=== PATIENT | female | born 1930 | race Caucasian/White ===

== ENCOUNTER 2016-10-21 07:41 | Inpatient (IN) | payer MEDICARE, BC ==
[~2016-10-21] VITALS: Ht 172.7 cm; Wt 71.6 kg
[~2016-10-21 07:41] MED LIST: AMIO200T PO; AMLO5TAB4 PO; CALC600T4 PO; CHOL200024 PO; CYAN500T18 PO; DIGO125T PO; DOXY100T PO; FOLI-17 PO; HYDR-3144 PO; IPRA0.2S35 INH; IRON18TA PO; METF500T27 PO; METO25TA35 PO; PRAV10TA2 PO; PRAV80TA2 PO; PREG100C PO; PROP50TA3 PO; TRAM50TA2 PO; VIT1CAPS16 PO; VITA1TAB3 PO; WARF3TAB7 PO
[2016-10-21] MEDS ORDERED: ONDANSETRON 2MG/ML, 2ML IVPush ONE (08:30)
[2016-10-21] MEDS ORDERED: SODIUM CHLORIDE FLUSH 10ML SYR IVF ONE (08:30)
[2016-10-21] MEDS ORDERED: ONDANSETRON 2MG/ML, 2ML ONE (08:52)
[2016-10-21 09:11] LABS: ASPARTATE AMINO TRANSFERASE 22 U/L (15-37); BLOOD UREA NITROGEN 24 mg/dL (7-18)
[2016-10-21 09:45] LABS: DIFF TOTAL CELLS COUNTED 100 CELL DIFF
[2016-10-21 09:46] LABS: ANISOCYTOSIS 1+; POLYCHROMASIA 1+; VERIFY COUNTS? YES
[2016-10-21] MEDS ORDERED: LACT1CAP35 PO (09:56)
[2016-10-21] MEDS ORDERED: GLUC1TAB55 PO (09:56)
[2016-10-21] MEDS ORDERED: FOLI-17 PO (09:56)
[2016-10-21] MEDS ORDERED: DOCU100C8 PO (09:56)
[2016-10-21] MEDS ORDERED: MAGN300C PO (09:56)
[2016-10-21] MEDS ORDERED: AMIO100T4 PO (09:56)
[2016-10-21 10:15] LABS: IS PT STATUS REG ER OR PRE ER? YES
[2016-10-21] MEDS ORDERED: ONDANSETRON ODT 4 MG PO PRN (14:00)
[2016-10-21] MEDS ORDERED: ACETAMINOPHEN 325 MG TABLET PO PRN (14:00)
[2016-10-21] MEDS ORDERED: HYDROcodone/APAP 5/325 TABLET PO PRN (14:00)
[2016-10-21 14:18] VITALS: BP 153/63
[2016-10-21] MEDS ORDERED: PHYTONADIONE 10 MG/ML, 1ML IM ONE (14:30)
[2016-10-21 15:20] LABS: TOTAL IRON BINDING CAPACITY 206 mcg/dL (250-450)
[2016-10-21] MEDS: SODIUM CHLORIDE 0.9% 1,000 ML IV SCH ×2 (15:58→23:39)
[2016-10-21] MEDS: IPRATROPIUM 0.5 MG/2.5 ML INHA HHN SCH ×2 (16:00→21:00)
[2016-10-21 18:31] VITALS: BP 137/63
[2016-10-21] MEDS: CYANOCOBALOMIN 100MCG TABLET PO SCH (20:00)
[2016-10-21 20:59] LABS: DIFF TOTAL CELLS COUNTED 100 CELL DIFF
[2016-10-21 21:05] LABS: ANISOCYTOSIS 1+; POLYCHROMASIA 1+; VERIFY COUNTS? YES
[2016-10-21] MEDS: CALCIUM CARBONATE 500 MG TAB.CHEW PO SCH (21:16)
[2016-10-21] MEDS: metFORMIN XR 500 MG TAB.ER.24H PO SCH (21:17)
[2016-10-21] MEDS: SIMVASTATIN 5 MG TABLET PO SCH (21:17)
[2016-10-21] MEDS: PROPYLTHIOURACIL 50 MG TABLET PO SCH (21:17)
[2016-10-22 01:03] VITALS: BP 149/66
[2016-10-22 06:37] LABS: BLOOD UREA NITROGEN 17 mg/dL (7-18)
[2016-10-22 06:52] LABS: DIFF TOTAL CELLS COUNTED 100 CELL DIFF
[2016-10-22 06:54] LABS: VERIFY COUNTS? YES
[2016-10-22 06:55] LABS: ANISOCYTOSIS 1+; POLYCHROMASIA 1+
[2016-10-22] MEDS: PREGABALIN 100 MG CAPSULE PO SCH (08:01)
[2016-10-22 08:09] VITALS: BP 145/50
[2016-10-22] MEDS: FERROUS SULFATE 325 MG TABLET PO SCH (08:11)
[2016-10-22] MEDS: PROPYLTHIOURACIL 50 MG TABLET PO SCH ×2 (08:11→20:50)
[2016-10-22] MEDS: FOLIC ACID 1 MG TABLET PO SCH (08:11)
[2016-10-22] MEDS: CHOLECALCIFEROL 1,000 UNIT TABLET PO SCH (08:11)
[2016-10-22] MEDS: metFORMIN XR 500 MG TAB.ER.24H PO SCH ×2 (08:11→20:50)
[2016-10-22] MEDS: HYDROcodone/APAP 10/325 MG TABLET PO PRN ×2 (08:11→15:52)
[2016-10-22] MEDS: CYANOCOBALOMIN 100MCG TABLET PO SCH (08:11)
[2016-10-22] MEDS: PANTOPRAZOLE 40 MG IV IVP SCH (08:11)
[2016-10-22] MEDS: LACTOBACILLUS 1GM/ PACKET PO SCH (08:12)
[2016-10-22] MEDS: CALCIUM CARBONATE 500 MG TAB.CHEW PO SCH ×2 (08:12→20:50)
[2016-10-22] MEDS: DOXYCYCLINE 100MG TABLET PO SCH (08:12)
[2016-10-22] MEDS: AMIODARONE 200 MG TABLET PO SCH (08:17)
[2016-10-22] MEDS: SODIUM CHLORIDE 0.9% 1,000 ML IV SCH ×2 (08:17→20:51)
[2016-10-22] MEDS: IPRATROPIUM 0.5 MG/2.5 ML INHA HHN SCH ×3 (09:00→21:00)
[2016-10-22 15:10] VITALS: BP 146/58
[2016-10-22 20:14] VITALS: BP 126/64
[2016-10-22] MEDS: SIMVASTATIN 5 MG TABLET PO SCH (20:51)
[2016-10-23 00:45] VITALS: BP 150/69
[2016-10-23] MEDS: HYDROcodone/APAP 10/325 MG TABLET PO PRN ×4 (00:58→22:10)
[2016-10-23] MEDS: SODIUM CHLORIDE 0.9% 1,000 ML IV SCH ×2 (05:39→15:39)
[2016-10-23 06:20] LABS: DIFF TOTAL CELLS COUNTED 100 CELL DIFF
[2016-10-23 06:22] LABS: VERIFY COUNTS? YES
[2016-10-23 06:23] LABS: ANISOCYTOSIS 1+
[2016-10-23 06:24] LABS: POLYCHROMASIA 1+
[2016-10-23 06:49] VITALS: BP 137/68
[2016-10-23] MEDS: DOXYCYCLINE 100MG TABLET PO SCH (07:55)
[2016-10-23] MEDS: PREGABALIN 100 MG CAPSULE PO SCH (07:55)
[2016-10-23] MEDS: PANTOPRAZOLE 40 MG IV IVP SCH (07:55)
[2016-10-23] MEDS: LACTOBACILLUS 1GM/ PACKET PO SCH (07:56)
[2016-10-23] MEDS: metFORMIN XR 500 MG TAB.ER.24H PO SCH ×2 (07:56→22:10)
[2016-10-23] MEDS: FERROUS SULFATE 325 MG TABLET PO SCH (07:56)
[2016-10-23] MEDS: CHOLECALCIFEROL 1,000 UNIT TABLET PO SCH (07:56)
[2016-10-23] MEDS: CALCIUM CARBONATE 500 MG TAB.CHEW PO SCH ×2 (07:56→22:10)
[2016-10-23] MEDS: PROPYLTHIOURACIL 50 MG TABLET PO SCH ×2 (07:56→22:10)
[2016-10-23] MEDS: AMIODARONE 200 MG TABLET PO SCH (07:56)
[2016-10-23] MEDS: FOLIC ACID 1 MG TABLET PO SCH (07:56)
[2016-10-23] MEDS: IPRATROPIUM 0.5 MG/2.5 ML INHA HHN SCH (09:00)
[2016-10-23 12:35] LABS: OCCBLD OBC PASS
[2016-10-23 14:34] VITALS: BP 103/56
[2016-10-23 18:45] VITALS: BP 119/66
[2016-10-23] MEDS: SIMVASTATIN 5 MG TABLET PO SCH (22:11)
[2016-10-24 03:09] VITALS: BP_SYST 164; BP_SYST 171; BP_DIAS 64; BP_DIAS 69
[2016-10-24] MEDS: HYDROcodone/APAP 10/325 MG TABLET PO PRN ×3 (03:56→22:13)
[2016-10-24 05:18] LABS: ANISOCYTOSIS 1+; POLYCHROMASIA 1+
[2016-10-24 06:58] VITALS: BP 146/67
[2016-10-24] MEDS: PREGABALIN 100 MG CAPSULE PO SCH (09:00)
[2016-10-24] MEDS: PROPYLTHIOURACIL 50 MG TABLET PO SCH ×2 (09:02→20:43)
[2016-10-24] MEDS: CALCIUM CARBONATE 500 MG TAB.CHEW PO SCH ×2 (09:02→20:43)
[2016-10-24] MEDS: AMIODARONE 200 MG TABLET PO SCH (09:02)
[2016-10-24] MEDS: FOLIC ACID 1 MG TABLET PO SCH (09:03)
[2016-10-24] MEDS: LACTOBACILLUS 1GM/ PACKET PO SCH (09:03)
[2016-10-24] MEDS: metFORMIN XR 500 MG TAB.ER.24H PO SCH ×2 (09:03→20:43)
[2016-10-24] MEDS: DOXYCYCLINE 100MG TABLET PO SCH (09:03)
[2016-10-24] MEDS: CHOLECALCIFEROL 1,000 UNIT TABLET PO SCH (09:04)
[2016-10-24] MEDS: PANTOPRAZOLE 40 MG IV IVP SCH (09:16)
[2016-10-24] MEDS ORDERED: FERROUS SULFATE 325 MG TABLET PO SCH (09:17)
[2016-10-24 16:02] VITALS: BP 157/68
[2016-10-24 19:31] VITALS: BP 160/79
[2016-10-25 01:54] VITALS: BP 148/72
[2016-10-25] MEDS ORDERED: PANTOPROZOLE 40MG TABLET PO SCH (07:30)
[2016-10-25 07:45] VITALS: BP 162/70
[2016-10-25] MEDS: HYDROcodone/APAP 10/325 MG TABLET PO PRN (07:53)
[2016-10-25] MEDS: LACTOBACILLUS 1GM/ PACKET PO SCH (08:07)
[2016-10-25] MEDS: PROPYLTHIOURACIL 50 MG TABLET PO SCH (08:07)
[2016-10-25] MEDS: AMIODARONE 200 MG TABLET PO SCH (08:07)
[2016-10-25] MEDS: CALCIUM CARBONATE 500 MG TAB.CHEW PO SCH (08:07)
[2016-10-25] MEDS: metFORMIN XR 500 MG TAB.ER.24H PO SCH (08:15)
[2016-10-25] MEDS: PREGABALIN 100 MG CAPSULE PO SCH (09:00)
[2016-10-25] MEDS ORDERED: WARF3TAB PO (14:19)
== END 2016-10-25 14:10 | disposition hospice, home (50) | DRG 378 ==
LOC: ED 10:28 → EDIP 11:49 → 3NW 14:12
PROVIDERS: ADMIT Internal Medicine; ATTEND Internal Medicine
PROC: 30233N1 Transfusion of Nonautologous Red Blood Cells into Peripheral Vein, Percutaneous Approach (ICD-10-PCS; principal; 2016-10-21)
DX: K92.2 Gastrointestinal hemorrhage, unspecified (principal); D68.59 Other primary thrombophilia; N39.0 Urinary tract infection, site not specified; D50.0 Iron deficiency anemia secondary to blood loss (chronic); K59.00 Constipation, unspecified; E05.90 Thyrotoxicosis, unspecified without thyrotoxic crisis or storm; E11.42 Type 2 diabetes mellitus with diabetic polyneuropathy; E78.00 Pure hypercholesterolemia, unspecified; I25.2 Old myocardial infarction; I48.91 Unspecified atrial fibrillation; R62.7 Adult failure to thrive; T45.515A Adverse effect of anticoagulants, initial encounter; Z96.659 Presence of unspecified artificial knee joint; Y92.89 Other specified places as the place of occurrence of the external cause; Z79.01 Long term (current) use of anticoagulants; Z79.2 Long term (current) use of antibiotics; Z80.0 Family history of malignant neoplasm of digestive organs; Z82.49 Family history of ischemic heart disease and other diseases of the circulatory system; Z85.038 Personal history of other malignant neoplasm of large intestine; Z87.440 Personal history of urinary (tract) infections; Z92.21 Personal history of antineoplastic chemotherapy; Z95.2 Presence of prosthetic heart valve; Z88.2 Allergy status to sulfonamides; A08.4 Viral intestinal infection, unspecified
CPT/HCPCS: 36415; 80048; 80053; 81003; 82272; 82607; 82746; 82962; 83540; 83550; 83690; 84436; 84481; 84484; 85025; 85610; 85730; 86677; 86850; 86870; 86900; 86902; 86922; 86923; 87324; 89055; 93005; 96374; J2405; J3430; J7644; C9113; J7030